=== PATIENT | male | born 1955 | race Caucasian/White ===

== ENCOUNTER 2019-07-16 12:10 | Inpatient (IN) | payer OTHER ==
[~2019-07-16] VITALS: Ht 172.7 cm; Wt 90.7 kg
[~2019-07-16 12:10] MED LIST: FER300 PO; FOL1 PO; L40 PO; LANTI SQ; LIPI20 PO; MIN2 PO; ULT50 PO; VITC PO; ZES10 PO; [UNRECOGNIZED DRUG - OTHER] PO
[2019-07-16 12:27] VITALS: Ht 172.7 cm; Wt 90.7 kg
--- NOTE | 2019-07-16 12:44 | NUR ---
GAVE PT URINAL FOR UA
--- NOTE | 2019-07-16 12:44 | NUR ---
PT CAME FROM HOME BY AMBULANCE FOR CO GEN WEAKNESS SINCE . PT WAS USING WALKER AT HOME TO AMBULATE BUT RECENTLY HAS NOT BEEN ABLE TO. FELL AT HOMETODAY AND HURT RIBS. PT HAS OLD SKIN FLAP REPAIR TO RT UNDERSIDE OF FOOT AND HAS BULGE ON LEFT CALF FROM OLD INJURY. PT IS AWAKE, ALERT AND ORINETED. HAS TREMORS NOTED AND SWELLING BILATERALLY +1. PT STATES HURTS TO BREATH. NON RADIATING AND SHARP.
[2019-07-16 13:28] LABS: PLATELET COUNT 193 x10^3mcL (130-400)
[2019-07-16 13:39] LABS: BASOPHIL % 0 % (0-2); RED CELL DISTRIBUTION WIDTH 15.9 % (11.5-14.5)
--- NOTE | 2019-07-16 13:40 | NUR ---
PT TO CT
--- NOTE | 2019-07-16 13:40 | NUR ---
PT INSTURCTED TO PROVIDE URINE. PT STILL NOT PROVIDED URINE AT THIS TIME
--- NOTE | 2019-07-16 13:52 | NUR ---
VERIFIED ORDER FOR NS WITH DR GABRIEL. PER DR CONT AT 126ML/HR DUE TO PT MISSING HIS DIYALSIS
[2019-07-16 13:54] LABS: ALKALINE PHOSPHATASE 59 U/L (46-116); ALT/SGPT 30 U/L (16-63); AST/SGOT 36 U/L (15-37); BILIRUBIN TOTAL 0.9 mg/dL (0.20-1.00); CALCIUM 8.5 mg/dL (8.5-10.1); CARBON DIOXIDE 20.9 mmol/L (21-32); CHLORIDE SERUM 96 mmol/L (98-107); GLUCOSE SERUM 169 mg/dL (74-106); LIPASE 40 IU/L (73-393); MAGNESIUM 2.3 mg/dL (1.8-2.4); TOTAL PROTEIN, SERUM 7.7 g/dL (6.4-8.2)
[2019-07-16 14:18] LABS: CHOLESTEROL 79 mg/dL (<200); GFR1 4 mL/min; HDL CHOLESTEROL 32 mg/dL (40-60); T4(THYROXINE) 3.8 ug/dL (4.7-13.3)
[2019-07-16 14:29] LABS: SODIUM SERUM 134 mmol/L (136-145)
[2019-07-16 14:32] LABS: ALBUMIN 3.1 g/dL (3.4-5.0); POTASSIUM SERUM 5.7 mmol/L (3.5-5.1)
[2019-07-16 14:33] LABS: CREATININE SERUM 12.4 mg/dL (0.7-1.3)
--- NOTE | 2019-07-16 14:36 | NUR ---
PT USING URINAL, PRIVACY PROVIDED.
--- NOTE | 2019-07-16 14:58 | NUR ---
US AT BEDSIDE, DR GABRIEL MADE AWARE OF PT'S VS.
--- NOTE | 2019-07-16 14:59 | NUR ---
DR GABRIEL MADE AWARE PT IS UNABLE TO URINATE. DR GABRIEL AT BEDSIDE TO DISCUSS POC WITH PT AND PT'S MOTHER.
--- NOTE | 2019-07-16 15:24 | NUR ---
PER DR HARVEY WALKER TO ORDER PT A RENAL DIET MEAL.
[2019-07-16] MEDS ORDERED: KAPVAY0.1 MG (15:41)
--- NOTE | 2019-07-16 16:09 | NUR ---
REPORT GIVEN TO ARMANDO RODRIGUEZ IN ICU TO RESUME CARE OF PT
--- NOTE | 2019-07-16 16:30 | NUR ---
REC PT FROM E.R. AA/O X4, BREATHING EVEN AND UNLABORED ON RA, LUNGS CLEAR. SR HR 74, C/O L RIB PAIN 02/27 WILL MEDICATED PER EMAR. BOWEL SOUNDS ACTIVE IN ALL FOUR QUADS, PER PT LAST BM 07/16 FORMED. IV TO THE R HAND 22G, PER ORDER INFUSING 126ML/HR OF NS. URINAL AT BEDSIDE, PT IS ABLE TO ASSIST WITH REPOSITIONING. CALL LIGHT IN REACH. WILL CONTINUE TO MONITOR.
[2019-07-16 17:01] VITALS: BP 98/47
[2019-07-16 17:05] LABS: CHOLESTEROL/HDL RATIO 2.5
[2019-07-16 17:06] LABS: FREE T4 0.96 ng/dL (0.76-1.46); T4(THYROXINE) 5.3 ug/dL (4.7-13.3)
[2019-07-16 17:07] LABS: T3 TOTAL 0.43 ng/mL
[2019-07-16 17:19] VITALS: BP 119/49
--- NOTE | 2019-07-16 17:57 | NUR ---
SPOT PT BS 129
--- NOTE | 2019-07-16 18:41 | NUR ---
TROP 0.305 DR TORREZ MADE AWARE.
--- NOTE | 2019-07-16 18:43 | NUR ---
DR. TORREZ MADE AWARE OF THE NEW CRITICAL RESULT OF THE TROPONIN 0.305 WHICH IS TRENDING UP. ALSO, THE BNP IS GREATER THAN 1440 AND IF HE WOULD LIKE TO TITRATE THE IVF'S DOWN FROM 126 ML/HR. WILL PUT ORDERS IN, FOLLOW AND CONTINUE TO MONITOR.
--- NOTE | 2019-07-16 19:00 | NUR ---
NS AT 126ML/HR D/C PER DR. SHAN BENJAMIN.
--- NOTE | 2019-07-16 19:24 | NUR ---
CARE ENDORSE TO ICU CHARGE NURSE.
--- NOTE | 2019-07-16 19:49 | NUR ---
Pt lying in bed comfortably. No distress noted. Kept clean and dry. All needs attended and anticipated. All meds given as ordered. New order obtained to transfer to telemetry unit at this time, awaiting bed at this time. Will continue to monitor.
--- NOTE | 2019-07-16 19:51 | NUR ---
Pt to be transferred to room 253B at this time. Will continue to monitor in tele.
--- NOTE | 2019-07-16 19:58 | NUR ---
Report given to Puja RN and pt tolerated transfer well at this time. Will continue to monitor.
--- NOTE | 2019-07-16 20:00 | NUR ---
RECEIVED PT FROM ICU NURSE. PT AOX4, DENIES ALMENDAREZ/DIZZINESS. PLACED PT ON TELE #14, READING NSR. DENIES CP/PRESSURE AT THIS TIME. DENIES SOB/DIFFICULTY BREATHING, ON RA. IV TO R. HAND, INTACT AND PATENT. BED IN LOWEST POSITION. CALL LIGHT WITHIN REACH. DIALYSIS NURSE AT BEDSIDE. WILL CONTINUE TO MONITOR.
--- NOTE | 2019-07-16 20:46 | NUR ---
PER DIALYSIS NURSE THE PT VENOUS ACCESS HAS NOTICABLE STENOSIS. DR. SERVIN MADE AWARE.
[2019-07-16 20:58] VITALS: BP 139/97
--- NOTE | 2019-07-17 03:51 | NUR ---
PT RESTING IN BED. RR EVEN AND UNLABORED. IN NO ACUTE DISTRESS. CALL LIGHT WITHIN REACH. BED IN LOWEST POSITION. WILL CONTINUE TO MONITOR.
[2019-07-17 05:55] VITALS: BP 131/83
--- NOTE | 2019-07-17 06:15 | NUR ---
PT EKG SHOWS SR WITH ST ELEVATION. PT DENIES CP/PRESSURE AT THIS TIME. VITAL SIGNS STABLE. DR. SERVIN NOTIFIED. NO FURTHER ORDERS AT THIS TIME.
[2019-07-17 06:51] LABS: PLATELET COUNT 171 x10^3mcL (130-400)
[2019-07-17 06:54] LABS: CALCIUM 8.8 mg/dL (8.5-10.1); CARBON DIOXIDE 28.1 mmol/L (21-32); MAGNESIUM 2.1 mg/dL (1.8-2.4); PHOSPHOROUS 6.8 mg/dL (2.5-4.9); POTASSIUM SERUM 4.8 mmol/L (3.5-5.1)
[2019-07-17 06:56] LABS: CREATININE SERUM 10.7 mg/dL (0.7-1.3)
--- NOTE | 2019-07-17 07:49 | NUR ---
RECEIVED IN NO ACUTE RESP. DISTRESS. AWAKE, ALERT AND ORIENTED. VS WNL. NO C/O PAIN AT THIS TIME. CALL LIGHT WITHIN REACH. WILL CONTINUE WITH PLAN OF CARE.
[2019-07-17 08:02] LABS: BASOPHIL % 0 % (0-2); RED CELL DISTRIBUTION WIDTH 15.9 % (11.5-14.5)
[2019-07-17 08:49] VITALS: BP 162/64
--- NOTE | 2019-07-17 09:00 | NUR ---
DR. OSMAN MADE AWARE OF ELEVETED TROP.CARDIO CONSULTED
--- NOTE | 2019-07-17 09:07 | NUR ---
PT C/O BACK PAIN 04/29 AND HAS TEMP 101.2. MEDICATED WITH NORCO PER MS ORDER.
[2019-07-17 11:35] VITALS: BP 133/60
--- NOTE | 2019-07-17 17:00 | NUR ---
RESTING IN BED, NO DISTRESS. DOCUMENT PROCESSOR IN AND PLACE A DRESSING TO RT FOOT AND WRAP WITH CONSTANCE WRAP. PT TOLERATED WELL. DRESSING INTACT.
[2019-07-17 17:02] VITALS: BP 161/83
--- NOTE | 2019-07-17 18:41 | NUR ---
C/O PAIN TO RLE, MEDICATED WITH NORCO PER ORDER. REMAINS IN NO ACUTE DISTRESS. BP SLIGHTLY ELEVETED BUT PT ASYMPTOMATIC. NO C/O CHEST DISCOMFORT AT THIS TIME. NO LIGHHEADED. CALL LIGHT WITHIN REACH. WILL BE ENDORSED TO INCOMING SHIFT.
--- NOTE | 2019-07-17 19:45 | NUR ---
RECEIVED AWAKE IN BED WATCHINBG TV, AWAKE AND VERBALLY RESPONSIVE. ABLE TO MAKE ENEDS KNOWM. DENIES ANY PAIN/DISCOMFORT AT THIS TIME. RESPIRTION EVEN AND UNLABORED. NO S/S OF ACUTE DISTRESS.
[2019-07-17 20:44] VITALS: BP 144/59
--- NOTE | 2019-07-18 00:35 | NUR ---
RECEIVED PT FROM PORTIA. PT IN NO ACUTE DISTRESS. CALL LIGHT WITHIN REACH. BED IN LOWEST POSITION. WILL CONTINUE TO MONITOR.
--- NOTE | 2019-07-18 03:30 | NUR ---
PT RESTING IN BED. RR EVEN AND UNLABORED. IN NO ACUTE DISTRESS. CALL LIGHT WITHIN REACH. WILL CONTINUE TO MONITOR.
[2019-07-18 04:48] VITALS: BP 148/67
[2019-07-18 06:38] LABS: PLATELET COUNT 158 x10^3mcL (130-400)
[2019-07-18 06:53] LABS: CARBON DIOXIDE 23.5 mmol/L (21-32); MAGNESIUM 2.3 mg/dL (1.8-2.4); PHOSPHOROUS 8.4 mg/dL (2.5-4.9); POTASSIUM SERUM 4.8 mmol/L (3.5-5.1)
[2019-07-18 07:03] LABS: RED CELL DISTRIBUTION WIDTH 15.6 % (11.5-14.5)
[2019-07-18 07:04] LABS: BASOPHIL % 0 % (0-2)
--- NOTE | 2019-07-18 07:15 | NUR ---
PT FOUND RESTING IN BED WITH BOTH EYES CLOSED W/ RIGHT LEG HANGING OVER SIDE OF BED. AWOKE PATIENT, PT AGITATED, YELLING, USING PROFANITY. AA/OX4. SPEECH CLEAR. FACE SYMMETRICAL. ASSISTED PT TO RAISE RLE BACK ONTO BED. PT COMPLIANT AT THIS TIME. DENIES CHEST PAIN. NO SOB ON ROOM AIR. RLE VIRA. IV WNL TO RFA, SALINE LOCKED. AV SHUNT TO ISRAEL +THRILL/BRUIT. NO C/O PAIN. PT LAYING IN BED WITH HOB ELEVATED DRINKING WATER. INSTRUCTED TO USE CALL LIGHT TO CALL FOR ASSISTANCE PRN. PT VERBALIZED UNDERSTANDING. BED IN LOW POSITION. CALL LIGHT WITHIN REACH. SIDE RAILS X2. WILL CONT. TO MONITOR.
[2019-07-18 08:38] VITALS: BP 130/69
--- NOTE | 2019-07-18 10:57 | NUR ---
PHYSICAL THERAPY AT BEDSIDE WORKING WITH PATIENT. NO S/S OF ACUTE DISTRESS. NO SOB ON 2LNC. PER RT BERNARDO, PT O2 SAT DROPPED TO 86% ON ROOM AIR WHILE LAYING IN BED. PLACED ON 2LNC. O2 SAT INCREASED TO 93%. AA/OX2. CONFUSED/FORGETFUL AT TIMES. DROWSY BUT EASILY AROUSABLE. RR EVEN/UNLABORED AT THIS TIME. CALM/COOPERATIVE. MOTHER JOELLEN AT BEDSIDE. BED IN LOW POSITION. CALL LIGHT WITHIN REACH. FALL PREC IN PLACE. WILL CONT. TO MONITOR.
[2019-07-18 11:47] VITALS: BP 150/88
[2019-07-18 16:02] VITALS: BP 155/77
--- NOTE | 2019-07-18 18:28 | NUR ---
PT RECEIVING HD. NO S/S OF ACUTE DISTRESS. NO PAIN. NO SOB ON 2LNC. DRESSING TO RLE CDI. NO CHEST PAIN. NO N/V. NO CHILLS. NO FEVER. CALM/COOPERATIVE. DIALYSIS AT BEDSIDE. VS STABLE. IV WNL TO RFA, NO REDNESS, NO SWELLING, NO INFILTRATION. BED IN LOW POSITION. CALL LIGHT WITHIN REACH. WILL ENDORSE TO ONCOMING SHIFT.
--- NOTE | 2019-07-18 19:49 | NUR ---
RECEIVED PT FROM PREVIOUS SHIFT NURSE. PT AOX1, ORIENTED TO SELF. DENIES ALMENDAREZ/DIZZINESS. ON TELE #14, READING SR WITH PVCS. DENIES CP/PRESSURE. PLACE CONTINUOUS PULSE OX ON PT, READING 97% ON 2L NC. DENIES SOB/DIFFICULTY BREATHING. GEN WEAKNESS. RLE WOUND WITH DISCOLORATION/EDEMA. R. FOOT BIG TOE NAIL BLACK. BLE SKIN GRAFT SCARS. IV TO RFA, INTACT AND PATENT. BED IN LOWEST POSITION. CALL LIGHT WITHIN REACH. WILL CONTINUE TO MONITOR.
[2019-07-18 20:22] VITALS: BP 146/69
--- NOTE | 2019-07-19 02:00 | NUR ---
PT RESTING IN BED. RR EVEN AND UNLABORED. PT IN NO ACUTE DISTRESS. BED IN LOWEST POSITION. CALL LIGHT WITHIN REACH. WILL CONTINUE TO MONITOR.
[2019-07-19 06:19] VITALS: BP 130/70
[2019-07-19 06:40] LABS: PLATELET COUNT 160 x10^3mcL (130-400)
[2019-07-19 06:59] LABS: BASOPHIL % 0 % (0-2); RED CELL DISTRIBUTION WIDTH 15.7 % (11.5-14.5)
--- NOTE | 2019-07-19 07:40 | NUR ---
RC'D PT RESTING IN BED WITH NO APPARENT S/S OF DISTRESS. A/A/O/X3, SPEECH CLEAR AND APPROPRIATE. PT DENIES ALMENDAREZ/DIOZZINESS. ON TELE, PT DENIES CP AT THIS TIME. PALP PULSES, EDEMA NOTED TO BUE/BLE, ELEVATED. RESPIRATIONS EQUAL AND UNLABORED. LUNGS DIM TO BASES. ON 2L O2 VIA NC, DENIES SOB. PT ON CONTINOUS O2. ABDOMEN SOFT AND NONTENDER. ACTIVE BS. PT DENIES N/V. PT REQUESTING URINAL TO VOID AT THIS TIME, DENIES BURNING. HD PT, VOIDS SMALL AMOUNTS. GENERALIZED WEAKNESS. RLE DRESSING CDI. LUE DRESSING CDI. PT DENIES EXCESSIVE PAIN AT THIS TIME. IV PATENT AND INTACT. BED IN LOW POSITION. CALL LIGHT IN REACH. WILL CONT TO LAI
[2019-07-19 07:46] LABS: CALCIUM 9.3 mg/dL (8.5-10.1); CARBON DIOXIDE 19.6 mmol/L (21-32); MAGNESIUM 2.5 mg/dL (1.8-2.4)
[2019-07-19 07:55] LABS: CREATININE SERUM 12.7 mg/dL (0.7-1.3)
[2019-07-19 08:06] VITALS: BP 169/80
--- NOTE | 2019-07-19 08:27 | NUR ---
AM MEDICATIONS GIVEN. PT TOLERATED WELL. RESPIRATIONS EQUAL AND UNLABORED. ON 2L VIA NC, PT DENIES SOB/PAIN. BED IN LOW POSITION. CALL LIGHT IN REACH. WILL CONT TO MONITOR
--- NOTE | 2019-07-19 11:18 | NUR ---
HD RN PRESENT AT BEDSIDE. PT RC'ING DIALYSIS AT THIS TIME, TOLERATING WELL. RESPIRATIONS EQUAL AND UNLABORED. ON 2L O2 VIA NC, DENIES SOB. BED IN LOW POSITION. CALL LIGHT IN REACH. WILL CONT TO MONITOR
[2019-07-19 11:51] VITALS: BP 169/80
[2019-07-19 12:40] VITALS: BP 158/81
--- NOTE | 2019-07-19 15:11 | NUR ---
PHYSICAL THERAPY NOTE ATTEMPTED FOR PHYSICAL THERAPY FOLLOW UP SESSION. PATIENT WAS ON DIALYSIS
--- NOTE | 2019-07-19 15:50 | NUR ---
HD COMPLETE, PER HD NURSE 3L REMOVED. PT TOLERATED WELL. RESPIRATIONS EQUAL AND UNLABORED. ON 2L O2 VIA NC, PT DENIES SOB. PT DENIES EXCESSIVE PAIN AT THIS TIME. VSS. BED IN LOW POSITION. CALL LIGHT IN REACH. WILL CONT TO MONITOR
[2019-07-19 16:28] VITALS: BP 126/64
--- NOTE | 2019-07-19 18:00 | NUR ---
PT RESTING IN BED WITH NO APPARENT S/S OF DISTRESS. RESPIRATIONS EQUAL AND UNLABORED. ON 2L O2 VIA NC, DENIES SOB. MEDSURG. DENIES CP. AMBULATORY. NO ACUTE SKIN CHANGES NOTED. PT DENIES PAIN AT THIS TIME. IV PATENT AND INTACT. BED IN LOW POSITION. CALL LIGHT IN REACH. WILL CONT TO MONITOR
--- NOTE | 2019-07-19 20:00 | NUR ---
RECEIVED PT IN BED AWAKE, ALERT, ORIENTED X2, CONFUSED AT TIMES. NO TELE MONITOR NEEDED. DENIES CHEST PAIN. LUNG SOUNDS DIMINISHED, PT ON 2L O2 VIA N/C. BS ACTIVE IN ALL FOUR QUADS. ABD IS OBESE. VOIDING FREELY. LEFT ARM WITH AV SHUNT WITH (+)BRUIT/THRILL. GENERALIZED WEAKNESS. PT HAS RLEWITH WOUND DISCOLORATION WRAPPED WITH DRESSING, RIGHT BIG TOE BLACK DISCOLORATION NOTED. BLE SKIN GRAFT SCAR. IV TO RFA TKO. SHIFT ASSESSMENT COMPLETED. CALL LIGHT WITHIN REACH. BED IS IN LOWEST POSITION. INSTRUCTED PT NOT TO GET OOB WITHOUT ASSISTANCE FOR SAFETY. ALL NEEDS TENDED TO. WILL CONTINUE TO MONITOR CLOSELY.
[2019-07-19 20:46] VITALS: BP 160/55
--- NOTE | 2019-07-19 21:30 | NUR ---
FSBS IS 219, 6 UNITS REGULAR INSULIN GIVEN ORDERED. ALL DUE MEDS GIVEN ORDERED. CALL LIGHT WITHIN REACH. BED IS IN LOWEST POSITION. WILL CONTINUE TO MONITOR CLOSELY.
[2019-07-20 05:30] VITALS: BP 136/69
--- NOTE | 2019-07-20 06:20 | NUR ---
PT HAD SEVERAL EPISODES OF CONFUSION AND TRYING TO GET OOB. BED ALARM WAS ON THROUGH OUT SHIFT. REORIENTED PT OFTEN. PT IS ORIENTED X2. RESTING IN BED AT THIS TIME. ALL NEEDS TENDED TO. WILL CONTINUE TO MONITOR CLOSELY.
--- NOTE | 2019-07-20 07:30 | NUR ---
PATIENT IS A&OX3, CONFUSED AT TIMES. BED ALARM IS ON. MEDSURG PATIENT, DENIES CHEST PAIN. PERIPHERAL PULSES ARE PALPABLE W/ TRACE BLE EDEMA. LUNG SOUNDS ARE CTA BILATERALLY, ON RA, 94%. NORMOACTIVE BSX4. L AV SHUNT, BRUIT AND THRILL PRESENT. HEMODIALYSIS PATIENT (M, W, AND F). GENERALIZED WEAKNESS, WEAKNESS ON RIGHTLEG. RLE WOUND DRESSING IS CDI. BLE SKIN GRAFT SCAR. IV SITE IS CDI. VSS. WILL CONTINUE TO MONITOR.
[2019-07-20 08:28] LABS: PLATELET COUNT 174 x10^3mcL (130-400)
[2019-07-20 08:36] LABS: BASOPHIL % 0 % (0-2)
[2019-07-20 08:37] VITALS: BP 145/72
[2019-07-20 09:01] LABS: POTASSIUM SERUM 4.1 mmol/L (3.5-5.1)
[2019-07-20 09:39] LABS: CALCIUM 9.3 mg/dL (8.5-10.1); CARBON DIOXIDE 25.5 mmol/L (21-32); MAGNESIUM 2.3 mg/dL (1.8-2.4); PHOSPHOROUS 6.5 mg/dL (2.5-4.9)
[2019-07-20 09:41] LABS: CREATININE SERUM 9.9 mg/dL (0.7-1.3)
[2019-07-20 12:25] VITALS: BP 153/77
[2019-07-20 16:41] VITALS: BP 120/64
--- NOTE | 2019-07-20 18:07 | NUR ---
PATIENT FELL OUT OF BED. VSS. PATIENT DENIES ANY INJURY TO THE HEAD. PATIENT SUSTAINED SMALL SCRATCHES ON RIGHT KNUCKLES OF HAND. PICTURE HAS BEEN TAKEN AND PUT INTO PATIENT FILE. INCIDENT REPORT WILL BE FILLED OUT AND FAMILY WILL BE CONTACTED. WILL CONTINUE TO MONITOR AND PLACE PATIENT BACK TO BED WITH HELP OF CLIENT HR MANAGER. WILL PLACE BED ALARM.
--- NOTE | 2019-07-20 18:47 | NUR ---
PATIENT IS CURRENTLY RESTING IN BED WHILE WATCHING TELEVISION. PATIENT DENIES ANY PAIN OR DISCOMFORT AFTER THE FALL. FAMILY HAS BEEN CONTACTED. BATCH TANK CONTROLLER HAS BEEN CONTACTED NO FURTHER ORDERS AT THIS TIME. WILL CONTINUE TO MONITOR. BED ALARM IS ON.
--- NOTE | 2019-07-20 19:43 | NUR ---
RECEIVED PATIENT IN BED AWAKE ALET AND CONFUSED WITH NO SIGN OF ACUTE DISTRESS. BREATHING EASY AND NONLABOR ON O2 AT 2L VIA NC WITH DIMNISHED BS. TRACED EDEMA NOTED TO RLE. ABDOMEN ROUND AND NONTENDER WITH ACTIVE BS. IV TO RFA PULLED BY PATIENT, TO REINSERT. WILL CONTINUE TO MONITOR. BED ALARM ON AND TO LOWEST POSITION.
--- NOTE | 2019-07-20 20:09 | NUR ---
IV REINSERTED TO RFA G 22 INTACT AND INFUSING WELL. WILL CONTINUE TO MONITOR.
[2019-07-20 20:40] VITALS: BP 133/69
--- NOTE | 2019-07-21 01:07 | NUR ---
APPEAR TO BE SLEEPING AT THIS TIME BREATHING EASY AND NONLABOR. WILL CONTINUE TO MONITOR.
--- NOTE | 2019-07-21 02:23 | NUR ---
AWAKE CONFUSED, PULLED HIS IV FOR THE SECOND TIME, REINSERTED TO RFA G 22. WILL CONTINUE TO MONITOR.
--- NOTE | 2019-07-21 05:10 | NUR ---
CHECKED AT INTERVALS FOR NEEDS AND SAFETY. ALL NEEDS ATTENDED.
[2019-07-21 05:50] VITALS: BP 161/68
--- NOTE | 2019-07-21 07:15 | NUR ---
RECEIVED PATIENT AOX4, NOT IN DISTRESS, MEDSURG, CTA ON BLF,ON ROOM AIR, PALPABLE PULSES, RLE EDEMA, +BS, LAST BM 07/20/19, NO DYSURIA, ANURIC, L AV SHUNT INTACT, + THRILL, GENERALIZED WEAKNESS, R FOOT PAIN AND REDNESS , SKIN R BIG TOE NAIL BLACK DISCOLORATION, BLE SKIN GRAFT SCAR MEDIAL LEG, R HAND ABRASION, HISTORY OF FALL 07/20/19. CALL LIGHT WITHIN REACH. BED AT LOWEST POSITION.
[2019-07-21 08:12] VITALS: BP 153/66
--- NOTE | 2019-07-21 08:35 | NUR ---
PHOSLO AND COLACE GIVEN. ANTIHYPERTENSIVE MEDICATIONS ON HOLD. PATIENT CURRENTLY ON HEMODIALYSIS, WILL GIVE AFTER.
--- NOTE | 2019-07-21 12:27 | NUR ---
TIMERS INSPECTOR HAISOON DIALYZED PATIENT , OUTPUT 3 L. BP 151/67, HR 82. TOLERATED HEMODIALYSIS. PHOSLO GIVEN.
--- NOTE | 2019-07-21 12:42 | NUR ---
PO MEDICATIONS FOR HYPERTENSION RESUMED AND GIVEN AFTER BLOOD TRANSFUSION DONE.
--- NOTE | 2019-07-21 13:00 | NUR ---
ACCUCHECK DONE WITH CBG 184. 3 UNITS REGULAR INSULIN SQ ABD GIVEN.
[2019-07-21 14:16] VITALS: BP 177/85
--- NOTE | 2019-07-21 16:47 | NUR ---
ACCUCHECK 235 . 6 UNITS REG INSULIN GIVEN.
--- NOTE | 2019-07-21 16:48 | NUR ---
SEEN PATIENT DISORIENTED, DR LOPEZ SEEN PATIENT. PATIENT IV REMOVED BY PATIENT, VERBALIZED IT IS UNCOMFORTABLE, I WANT TO SHOWER.
--- NOTE | 2019-07-21 17:48 | NUR ---
AOX2, NOT IN DISTRESS. PHOSLO GIVEN. IV REINSERTED. PATENT, INTACT AT RFA. NO REDNESS OR INFILTRATION. CALL LIGHT WITHIN REACH. BED AT LOWEST POSITION .
[2019-07-21 18:20] VITALS: BP 172/78
[2019-07-21 18:59] VITALS: BP 158/78
--- NOTE | 2019-07-21 19:20 | NUR ---
RECEIVED REPORT FROM SOURAV RODRIGUEZ. PT IS AAOX2-3. PT IS AWARE OF HIS NAME, BIRTHDATE, AND DAY. PT IS FORGETFUL THAT HE IS IN THE HOSPITAL. REORIENTED PT TO SURROUNDINGS AND TOLD HIM HE WAS AT [facility] [place] AND HE WAS ABLE TO UNDERSTAND. PT IS MED-SURG AND DENIES CHEST PAIN OR PRESSURE AT THIS TIME. PT PULSES ARE PALPABLE. PT HAS 2+ PITTING EDEMA TO RLE. UNNA BOOT IN PLACE TO RLE, CDI. BLANCHABLE REDNESS TO RLE. PT HAS DIMINISHED LUNG SOUNDS ON 2L NC/RA. PT DENIES SOB OR RESPIRATORY DISTRESS AT THIS TIME. PT ABD SOFT AND ROUND. PT BOWEL SOUNDS ACTIVE X4. PT DENIES N/V/D. PT VOIDS, BUT IS ANURIC. PT LEFT AV SHUNT, BRUIT AND THRILL PRESENT. PT IS ON HD M/W/F AND LAST HD 07/21/19 WITH OUTPUT 3L. PT HAS GENERALIZED WEAKNESS TO RLE. FALL RISK PROTOCOLS IN PLACE. PT IS S/P FALL ON 07/20/19. PT HAS WOUND/DISCOLORATION/EDEMA TO RLE. RIGHT FOOT BIG TOE IS BLACK. SKIN GRAFT SCAR TO BLE. PT IV PATENT AND INTACT. CALL LIGHT WITHIN REACH. BED IN LOWEST POSITION. SIDE RAILS X2 UP. WILL CONTINUE TO MONITOR.
[2019-07-21 20:26] VITALS: BP 162/73
--- NOTE | 2019-07-21 22:30 | NUR ---
PT IV IS NO LONGER PATENT AND NOT ABLE TO FLUSH NS AT THIS TIME. SUCCESSFUL IV REINSERTION DONE AFTER 2 ATTEMPTS. NEW IV INSERTION TO RFA 22G. GOOD BLOOD RETURN. FLUSHED 10CC NS. D/C OLD IV TO RFA, CATH INTACT. PRESSURE AND BANDAGE APPLIED. WILL CONTINUE TO MONITOR.
--- NOTE | 2019-07-22 00:50 | NUR ---
PT SLEEPING, BUT EASILY AROUSABLE. PER DR. YANES, PT WILL BE STARTED ON 2MMU PENICILLIN G POTASSIUM IN DEXTROSE 5% WATER. PT ZOSYN AND VANCO WILL BE D/C. PER SEP, STARTED PT ON NEW ANTIBIOTIC. IV SITE PATENT AND INTACT. NO S/S OF REDNESS, PAIN, OR SWELLING NOTED. WILL CONTINUE TO MONITOR.
--- NOTE | 2019-07-22 02:50 | NUR ---
PT BED ALARM WENT OFF. PT WAS TRYING TO LEAVE HIS BED AND STATED HE NEEDED TO GET READY TO GO. PT PULLED OUT IV, CATH INTACT. REORIENTED PT TO SURROUNDINGS. CHANGED PT LINEN AND GOWN DUE TO BLOOD ON THEM. REINSERTED NEW IV TO RFA 22G. GOOD BLOOD RETURN. FLUSHED 10CC NS. RESUMED IV ANTIBIOTICS. WILL HEP LOCK ONCE ANTIBIOTICS ARE COMPLETED. CALL LIGHT WITHIN REACH. BED IN LOWEST POSITION. SIDE RAILS X2 UP. BED ALARM ON. WILL CONTINUE TO MONITOR.
--- NOTE | 2019-07-22 05:10 | NUR ---
PT ATTEMPTED TO GET OUT OF BED. PT WAS UNAWARE OF WHERE HE WAS. REORIENTED THE PT STATING THAT HE WAS AT [facility]. PT WAS ABLE TO UNDERSTAND. ASSISTED PT TO CHAIR FROM BED. CHANGED LINENS ON BED. CAR CLEANING SUPERVISOR AT BEDSIDE TAKING VITALS. WILL CONTINUE TO MONITOR.
--- NOTE | 2019-07-22 05:12 | NUR ---
PT SLEPT THROUGHOUT THE NIGHT, BUT EASILY AROUSABLE. PT COMPLIED WITH NURSING CARE THROUGHOUT THE SHIFT. PT WAS CONFUSED 1X AND PULLED OUT IV STATING "I HAVE TO GO NOW." REINSERTED IV SUCCESSFULLY TO RFA. PT ATTEMPTED TO GET OUT OF BED 2X DURING THE SHIFT. REORIENTED PT TO SURROUNDINGS. PT AAO TO NAME, BIRTHDATE, DAY. COMFORT AND SAFETY MEASURES MAINTAINED DURING THE SHIFT. ALL QUESTIONS AND CONCERNS ADDRESSED. WILL ENDORSE CARE TO DAY SHIFT NURSE. WILL CONTINUE TO MONITOR.
[2019-07-22 05:19] VITALS: BP 143/65
[2019-07-22 06:36] LABS: BASOPHIL % 0.2 % (0-2); PLATELET COUNT 208 x10^3mcL (130-400)
[2019-07-22 06:41] LABS: CALCIUM 9.6 mg/dL (8.5-10.1); CARBON DIOXIDE 27.6 mmol/L (21-32); POTASSIUM SERUM 3.9 mmol/L (3.5-5.1)
[2019-07-22 06:48] LABS: CREATININE SERUM 9.2 mg/dL (0.7-1.3)
[2019-07-22 06:54] LABS: RED CELL DISTRIBUTION WIDTH 15.6 % (11.5-14.5)
--- NOTE | 2019-07-22 07:18 | NUR ---
ENDORSED CARE TO ANA RODRIGUEZ. ALL QUESTIONS AND CONCERNS ADDRESSED.
--- NOTE | 2019-07-22 07:19 | NUR ---
REPORT TAKEN FROM PLANER OPERATOR NURSE AT THE BEDSIDE, PATIENT RESTING WITH EYES CLOSED, CHEST RISE AND FALL OBSERVED, NO DISTRESS NOTED, WILL CONTINUE TO MONITOR.
[2019-07-22 08:06] VITALS: BP 157/73
[2019-07-22 11:51] VITALS: BP 146/68
--- NOTE | 2019-07-22 13:03 | NUR ---
PATIENT ABLE TO TRANSFER TO CHAIR NEXT TO BED WITH MIN ASSIST, EATING LUNCH AT THIS TIME, WILL CONTINUE TO MONITOR.
[2019-07-22 16:13] VITALS: BP 119/65
[2019-07-22 16:22] VITALS: BP 119/65
--- NOTE | 2019-07-22 18:48 | NUR ---
PATIENT TOLERATED TREATMENT WELL DURING THE SHIFT, GOT OUT OF BED INTO CHAIR AT THE BEDSIDE SEVERAL TIMES TODAY WITH ASSIST AND WALKER. HD SCHDULED FOR TOMORROW AND HD NURSE AWARE, WILL REPORT TO SENSOR TECHNICIAN NURSE AND ENDORSE CARE
[2019-07-22 19:44] VITALS: BP 141/75
--- NOTE | 2019-07-22 20:00 | NUR ---
RECEIVED PT IN BED, RESTING, ALERT AND ORUENTED, CONFUSED AT TIMES. ABLE TO VERBALIZED NEEDS. DENIES HEADACHE/DIZZINESS. RESP. EVEN AND UNLABORED. LUNG SOUNDS DIM. 02 AT 2L/MIN VIA NC, NO ACUTE DISTRESS NOTED. DENIES CP OR ANY DISCOMFORT AT THIS TIME. HEMODIALYSIS PT, WITH AV SHUNT TO ISRAEL, WITH GOOD BRUIT/THRILL. FOR HEMODIALYSIS IN AM. HL TO RFA, INTACT AN DPATENT. CONSTANCE WRAP DRESSING TO RT FOOT, DRY AND INTACT, FOOT ELEVATED,ASSISTED WITH HS CARE.CALL LIGHT WITHIN REACH. ON FALL PREC. INSTRUCTED TO CALL FOR ASSIST. IF NEEDED, PT VERBALIZED UNDERSTANDING . WILL CONTINUE TO MONITOR.
--- NOTE | 2019-07-23 00:27 | NUR ---
COMPLAINED OF HEADACHE, 5/10, MEDICATED WITH TYLENOL PO ORDERED WITH RELIEF. WILL CONTINUE TO MONITOR.
--- NOTE | 2019-07-23 02:00 | NUR ---
EYES CLOSED, RESTING QUIETLY, APPEARS ASLEEP, EASILY AROUSABLE. RESP. EVEN AND UNLABORED. ON 02 AT 2L/MIN VIA NC, NO ACUTE DISTRESS NOTED. CALL LIGHT WITHIN REACH. WILL CONTINUE TO MONITOR.
[2019-07-23 04:58] VITALS: BP 125/56
--- NOTE | 2019-07-23 06:20 | NUR ---
AFEBRILE AND VITAL SIGNS STABLE. CONFUSED AT TIMES, RE-ORIENTED TO PLACE AND TIME. RESP. EVEN AND UNLABORED. 02 AT 2L/MIN VIA NC, DENIES SOB, NO ACUTE DISTRESS NOTED. DUE MEDS GIVEN ORDERED, BALJIT. WELL. KEPT COMFORTABLE. WILL CONTINUE TO MONITOR.
--- NOTE | 2019-07-23 07:13 | NUR ---
PHYSICAL THERAPY DAILY NOTES CO-SIGN All documentation done by the [employer] Transactions Attorney for 07/23/19 has been reviewed. I agree with the documentation. Reviewed/Co-Signed by: Ebony Jordan PT Documentation Done by:SHAUN DURÁN PTA
--- NOTE | 2019-07-23 07:20 | NUR ---
RECEIVED PT FROM NIGHT RN. PT AOX3 TO NAME AND BIRTHDAY. PT NEEDED TO BE REORIENTED OF THE DATE AND TIME. DENIES ANY PAIN OR DISCOMFORT. RESPIRATIONS E/U ON 2L WITH DIMINISHED LUNG SOUNDS. PT NON-TELE. PERIPHERAL PULSES PALPABLE BILATERALLY. +2 EDEMA ON RLE. ABD SOFT WITH ACTIVE BOWEL SOUNDS. IVF TO RFA SL CDI. BED ON LOWEST POSITION. CALL LIGHT WITHIN REACH. WILL CONTINUE TO MONITOR.
[2019-07-23 07:34] LABS: BASOPHIL % 0.1 % (0-2); PLATELET COUNT 226 x10^3mcL (130-400)
[2019-07-23 07:36] LABS: RED CELL DISTRIBUTION WIDTH 15.5 % (11.5-14.5)
[2019-07-23 07:55] LABS: CALCIUM 9.7 mg/dL (8.5-10.1); CARBON DIOXIDE 25.8 mmol/L (21-32); MAGNESIUM 2.6 mg/dL (1.8-2.4); PHOSPHOROUS 7.4 mg/dL (2.5-4.9); POTASSIUM SERUM 4.2 mmol/L (3.5-5.1)
[2019-07-23 08:01] LABS: CREATININE SERUM 11.7 mg/dL (0.7-1.3)
[2019-07-23 08:30] VITALS: BP 138/61
--- NOTE | 2019-07-23 10:21 | NUR ---
rechecked pain level.claims to feel a lot better after toradol.claims pain went down to 7/10 pain scale.
[2019-07-23 11:18] VITALS: BP 154/70
[2019-07-23] MEDS ORDERED: [UNRECOGNIZED DRUG - CODE] IV ×2 (11:22→12:46)
[2019-07-23 13:39] VITALS: BP 154/70
--- NOTE | 2019-07-23 14:15 | NUR ---
P.T. NOTES UNABLE TO SEE PATIENT AT THIS TIME DUE TO HVAING DIALYSIS TREATMENT.
--- NOTE | 2019-07-23 14:22 | NUR ---
1. Recommend continuing CCHO, Renal diet
--- NOTE | 2019-07-23 14:22 | NUR ---
Initial Nutrition Assessment: 253/A P[facility] MR Dx: broken rib, no q acute PR PMHx: ESRD w/HD (M,W,Fr), Hep C, DM, HTN, HLD, CHF PSHx: Bilateral lower extremity skin grafts Labs: NA 131L, BG 198H, CREAT 11.7H, BUN 61H, P 7.4H, ALB 3.1L, A1C 7.0H Meds: Colace, D 50%, Humulin, Lipitor, nephron-adalgisa, phoslo, zofran Diet: CCHO, Renal PO intake since admission: (07/22) breakfast, dinner 100%, lunch 80%, (07/21) dinner 100%, lunch 90%, breakfast 80%, (07/20) dinner 45%, lunch 100%, breakfast 50% Ht: 172.72 cm (68") Wt: 90 kg (198#) BMI: 30.4 kg/m2 Bed scale: 90 kg IBW: 154# (70 kg) %IBW: 128 UBW: 198# Age: 63/M Food Allergies: NKFA Skin: R hand abrasion, R foot erythema an ulna boot Marlon: 17 Edema: RLE GI: Last BM: 07/22 Per H&P, Pt is a 63 year old male with PMH of ESRD w/HD (M,W,Fr), Hep C, DM, HTN, HLD, CHF came in with complaints of shortness of breath. RD Note (07/23): Patient was awake however he seemed a little confused while answering questions. Patient said that he ate his breakfast this morning and denies any N/V/D/C at this time. Per progress note (07/23) insurance denied LTAC, SNF will be arranged Problem with: N/V/D/C: none Problems with: Chewing: Swallowing: none Current appetite: good Recent wt change: none %wt change: n/a Vitamin/Supplement use: none Special diet at home: Regular Physical activity: sedentary Nutrition education given: renal and diabetic education. Patient seemed a little confused so only a few tips were provided and discussed. Food-drug interactions: none Education given: n/a Estimated Nutritional Needs Based on adjusted body weight (75 kg) Energy: 0023-7391 kcal/day (30-35 kcal/kg for HD needs) Protein: 90-105 g/day (1.2-1.4 g/kg for HD needs) Fluid: 7512-5363 mL/day (1 mL/kcal) Nutrition Diagnosis: 1. Increased nutrient needs related to increased metabolic demands as evidence dby patient on dialysis. Intervention 1. Recommend continuing CCHO, Renal diet Monitor/Evaluate Goal: PO intake at least 75% of estimated needs Monitor: PO intake, Labs, GI function F/U in 3-5 days as moderate risk /-8
[2019-07-23 16:07] VITALS: BP 145/72
--- NOTE | 2019-07-23 16:30 | NUR ---
INFORMED BY CHARGE NURSE PT ACCEPTED TO THE [facility].PAPERWORK COMPLETED.INFORMED PT AND THAT PT WILL BE TRANSFERRED TO [facility] IN [place].
--- NOTE | 2019-07-23 16:53 | NUR ---
DIALYSIS DONE WITH 3 L OUT .PT TOLERATED IT WELL.
--- NOTE | 2019-07-23 17:08 | NUR ---
I HAVE REVIEWED THE DATA COLLECTION BY MICHAEL THOMPSON (NAME); SHELLY SMITH RN ENTERED ON (DATE/TIME):07/23/19 @ 4248 I CONCUR WITH THE DATA AND ANY EXCEPTIONS OR COMMENTS ARE LISTED BELOW:
--- NOTE | 2019-07-23 18:07 | NUR ---
GAVE REPORT TO MICHAEL MARKHAM FOR PT TO BE TRANSPORTED TO THE [facility].
--- NOTE | 2019-07-23 18:46 | NUR ---
PT PULLED IV ACCIDENTALLY.REINSERTED 20 DUNCAN R FA.
--- NOTE | 2019-07-23 19:23 | NUR ---
NO SIGNIFICANT CHANGES NOTED. WILL ENDORSE CARE TO NIGHT RN.
--- NOTE | 2019-07-23 20:03 | NUR ---
PT AWAKE AND CONFUSED. FAMILY AT BEDSIDE. PT TOOK OF DRESSING ON THE LEFT AV SHUNT WITH POSITIVE BRUIT AND THRILL. SMALL AMOUNT OF BLOOD CAME OUT. PLACED A NEW DRESSING. INSTRUCTED THE PT NOT TO TAKE OF DRESSING ON THE LEFT AV SHUNT AND NOT TO PULL OUT IV. PT VERBALIZED UNDERSTANDING. PT WAS PICKED UP VIA GURNEY BY [facility] TO BE TRANSFFERED TO [facility]. PT DENIES PAIN AND DISCOMFORT.
== END 2019-07-23 20:02 | DRG 871 ==
LOC: ED 12:10 → DU 15:17 → IC 15:17 → MU 15:17 → EDBEDREQSVC 15:23 → IC 16:31 → DU 20:29 → MU 07-19 15:25
PROVIDERS: Emergency Medicine; Internal Medicine; Internal Medicine Nephrology; ADMIT General Practice
PROC: 5A1D70Z Performance of Urinary Filtration, Intermittent, Less than 6 Hours Per Day (ICD-10-PCS; principal; 2019-07-16)
DX: A41.9 Sepsis, unspecified organism (principal); J69.0 Pneumonitis due to inhalation of food and vomit; N18.6 End stage renal disease; J96.01 Acute respiratory failure with hypoxia; I50.33 Acute on chronic diastolic (congestive) heart failure; I21.A1 Myocardial infarction type 2; I13.2 Hypertensive heart and chronic kidney disease with heart failure and with stage 5 chronic kidney disease, or end stage renal disease; S22.42XA Multiple fractures of ribs, left side, initial encounter for closed fracture; L03.115 Cellulitis of right lower limb; D68.69 Other thrombophilia; E87.1 Hypo-osmolality and hyponatremia; S93.401A Sprain of unspecified ligament of right ankle, initial encounter; S91.211A Laceration without foreign body of right great toe with damage to nail, initial encounter; E11.22 Type 2 diabetes mellitus with diabetic chronic kidney disease; B95.0 Streptococcus, group A, as the cause of diseases classified elsewhere; E11.21 Type 2 diabetes mellitus with diabetic nephropathy; E11.65 Type 2 diabetes mellitus with hyperglycemia; E87.5 Hyperkalemia; E83.41 Hypermagnesemia; E83.39 Other disorders of phosphorus metabolism; E78.5 Hyperlipidemia, unspecified; E03.9 Hypothyroidism, unspecified; B18.2 Chronic viral hepatitis C; Z79.4 Long term (current) use of insulin; Z79.82 Long term (current) use of aspirin; Z99.2 Dependence on renal dialysis; Z68.30 Body mass index [BMI] 30.0-30.9, adult; W06.XXXA Fall from bed, initial encounter; Y92.012 Bathroom of single-family (private) house as the place of occurrence of the external cause
CPT/HCPCS: 36600; 82962; 83880; 84439; 87804; 94150; 97110-GP; 97112-GP; 97116-GP; 97530-GP; G0378; G0480; J2540; J2543; J3370; J7030; J7040; J7042; J7050; J7060; J7620; Q0092